=== PATIENT | male | born 1955 | race Caucasian/White ===

== ENCOUNTER 2019-05-11 11:07 | Emergency (ER) | payer BC, MEDICARE ==
[2019-05-11] MEDS ORDERED: Aspirin 81 mg CHEW TAB* 81 MG TAB.CHEW PO ONE (11:20)
[2019-05-11] MEDS ORDERED: Nitroglycerin TAB 0.4 MG* 0.4 MG TAB SL ONE (11:20)
--- NOTE | 2019-05-11 11:42 | ED ---
HPI Chest Pain - HPI Summary HPI Summary: 63 year old male presents to the ED with a chief complaint of dull lower chest pain starting this morning at 0430. Patient reports nausea. He denies vomiting, diarrhea, shortness of breath, abdominal pain, cough, diaphoresis, and dizziness. Patient has presented to the ED in the past with these symptoms with no findings. Patient smokes tobacco. PMHx of HLD. No HTN, DM. Family history of [place]. - History of Current Complaint Chief Complaint: EDAbdPain Time Seen by Provider: 05/11/19 11:21 Hx Obtained From: Patient Onset/Duration: Started Hours Ago Time of Onset: 04:30 Timing: Constant Initial Severity: Mild Current Severity: Mild Pain Intensity: 0 Chest Pain Location: Lower Sternal Chest Pain Radiates: Yes Chest Pain Radiates To:: Epigastric Character: Dull/Aching Associated Signs and Symptoms: Positive: Chest Pain, Nausea. Negative: Dizziness, Shortness of Breath, Diaphoresis, Cough, Vomiting - Allergy/Home Medications Allergies/Adverse Reactions: Allergies Allergy/AdvReac Type Severity Reaction Status Date / Time No Known Allergies Allergy Verified 07/29/17 09:31 Home Medications: Home Medications Aspirin EC TAB* [Ecotrin EC Low Dose 81 MG*] 81 mg PO DAILY 05/11/19 [History Confirmed 05/11/19] Rosuvastatin (NF) [Crestor (NF)] 5 mg PO DAILY 05/11/19 [History Confirmed 05/11] PMH/Surg Hx/FS Hx/Imm Hx Endocrine/Hematology History: Denies: Hx Diabetes Cardiovascular History: Reports: Hx Hypercholesterolemia, Other Cardiovascular Problems/Disorders - high cholesterol Denies: Hx Hypertension, Hx Pacemaker/ICD Respiratory History: Denies: Hx Asthma History: Denies: Hx Renal Disease Sensory History: Denies: Hx Hearing Aid Psychiatric History: Denies: Hx Panic Disorder - Surgical History Surgery Procedure, Year, and Place: BLADDER BIOPSY - BENIGN Infectious Disease History: No Infectious Disease History: Denies: Traveled Outside the [place] in Last 30 Days - Family History Known Family History: Negative: Cardiac Disease Family History: NON CONTRIBUTORY - Social History Alcohol Use: Daily Alcohol Amount: 2-3 beers/day Substance Use Type: Reports: None Smoking Status (MU): Heavy Every Day Tobacco Smoker Type: Cigarettes Amount Used/How Often: 1 PPD Length of Time of Smoking/Using Tobacco: 25+ Have You Smoked in the Last Year: Yes Review of Systems Negative: Skin Diaphoresis Positive: Chest Pain Negative: Shortness Of Breath, Cough Positive: Abdominal Pain, Nausea. Negative: Vomiting, Diarrhea All Other Systems Reviewed And Are Negative: Yes Physical Exam - Summary Physical Exam Summary: VITAL SIGNS: Reviewed. GENERAL: Patient is a well-developed and nourished male who is lying comfortable in the stretcher. Patient is not in any acute respiratory distress. HEAD AND FACE: No signs of trauma. No ecchymosis, hematomas or skull depressions. No sinus tenderness. EYES: PERRLA, EOMI x 2, No injected conjunctiva, no nystagmus. EARS: Hearing grossly intact. Ear canals and tympanic membranes are within normal limits. MOUTH: Oropharynx within normal limits. NECK: Supple, trachea is midline, no adenopathy, no JVD, no carotid bruit, no c- spine tenderness, neck with full ROM. CHEST: Symmetric, no tenderness at palpation. LUNGS: Clear to auscultation bilaterally. No wheezing or crackles. CVS: Regular rate and rhythm, S1 and S2 present, no murmurs or gallops appreciated. ABDOMEN: Soft, non-tender. No signs of distention. No rebound, no guarding, and no masses palpated. Bowel sounds are normal. EXTREMITIES: FROM in all major joints, no edema, no cyanosis or clubbing. NEURO: Alert and oriented x 3. No acute neurological deficits. Speech is normal and follows commands. SKIN: Dry and warm. Triage Information Reviewed: Yes Vital Signs On Initial Exam: Initial Vitals Temp Pulse Resp BP Pulse Ox 96.7 F 62 16 135/109 97 05/11/19 11:08 05/11/19 11:08 05/11/19 11:08 05/11/19 11:08 05/11/19 11:08 Vital Signs Reviewed: Yes Procedures - Sedation Patient Received Moderate/Deep Sedation with Procedure: No Diagnostics - Vital Signs Vital Signs Temp Pulse Resp BP Pulse Ox 05/11/19 11:08 96.7 F 62 16 135/109 97 - Laboratory Result Diagrams: 05/11/19 11:21 05/11/19 11:21 Lab Statement: Any lab studies that have been ordered have been reviewed, and results considered in the medical decision making process. - EKG 1111 Cardiac Rate: Bradycardia - 59 bpm EKG Rhythm: Sinus Bradycardia ST Segment: Normal EKG Comparison: No Significant Change Summary of EKG Findings: EKG at 11:11 shows sinus bradycardia at 59 bpm. No STEMI. T wave inversion in beat 3. Similar to 07/29/17. An ED physician has reviewed and interpreted this EKG. Chest Pain Course/Dx - Course Assessment/Plan: 63 year old male presents to the ED with a chief complaint of dull lower chest pain starting this morning at 0430. Patient reports nausea. He denies vomiting, diarrhea, shortness of breath, abdominal pain, cough, diaphoresis, and dizziness. Patient has presented to the ED in the past with these symptoms with no findings. Patient smokes tobacco. PMHx of HLD. No HTN, DM. Family history of [place]. Blood work without any significant abnormality except for glucose 134 and the total protein 6.3. First troponin negative. EKG shows a normal sinus rhythm without any ST elevation. CXR: no acute pathology. Second troponin is 0.00. Patient reports that all symptoms have resolved. Patient Hear score is: 3 therefore, low suspicion for CAD. Patient is not hypoxic or tachycardic. Wells criteria 0. Therefore, no suspicion for PE. Patient has no abdominal bruit thus no suspicion for AAA. Patients pain does not radiate to the back and pain has resolved thus low suspicion for aortic dissection. I discussed all the findings and test results with the patient. Patient was instructed to return to the emergency room immediately if any of the symptoms return or worsen. Patient understands and agrees. Plan of care was discussed with the patient and patient understands and agrees. All questions were answered at patient satisfaction. There were no further complaints or concerns. PE before discharge: CVS: S1 and S2 present. No murmurs appreciated. Abdominal exam before discharge: Soft, non-tender. No signs of distention. No rebound no guarding, and no masses palpated. Bowel sounds are normal. Patient is alert and oriented x 3. Patient is hemodynamically stable. - Chest Pain Differential Diagnosis/HQI/PQRI: Acute [place], ACS, Angina, CHF, Chest Wall, GI Disease, Lower Respiratory Infection - Diagnoses Provider Diagnoses: Chest pain Discharge ED - Sign-Out/Discharge Documenting (check all that apply): Patient Departure - discharge home - Discharge Plan Condition: Stable Disposition: HOME Patient Education Materials: Chest Pain (ED) Referrals: Rahul Vang MD [Primary Care Provider] - Additional Instructions: Follow up with your primary care provider in 2-3 days. Return to the Emergency Department if you experience new or worsened symptoms. - Billing Disposition and Condition Condition: STABLE Disposition: Home - Attestation Statements Document Initiated by Poibe: Yes Documenting Scribe: Adrien Varner Provider For Whom Sherine is Documenting (Include Credential): Dr. Rodrick Srinivasan Scribe Attestation: Adrien Deluna, scribed for Dr. Rodrick Srinivasan on 05/11/19 at 2117. Scribe Documentation Reviewed: Yes Provider Attestation: The documentation as recorded by the Adrien jeffery accurately reflects the service I personally performed and the decisions made by Dr. Rodrick acevedo Status of Scribe Document: Viewed
[2019-05-11 11:48] LABS: ABS Eosinophils 0.1 10^3/ul (0-0.6); ABS Lymphocytes 2.3 10^3/ul (1.0-4.8); ABS Monocytes 0.4 10^3/ul (0-0.8); ABS Neutrophils 4.1 10^3/ul (1.5-7.7); ALT 22 U/L (7-52); AST 16 U/L (13-39); Albumin/Globulin Ratio 1.7 (1-3); Alkaline Phosphatase 59 U/L (34-104); Anion Gap 5 mmol/L (2-11); BUN/Creatinine Ratio 16.7 (8-20); Blood Urea Nitrogen 18 mg/dL (6-24); C Reactive Protein < 1.00 mg/L (<8.01); CO2 Carbon Dioxide 27 mmol/L (22-32); Chloride 107 mmol/L (101-111); Creatine Kinase 70 U/L (10-223); EGFR Non-African American 68.6 (>60); Globulin 2.3 g/dL (2-4); Glucose 134 mg/dL (70-100); Hematocrit 45 % (42-52); Hemoglobin 15.3 g/dL (14.0-18.0); Lymphocyte % 33.2 %; Mean Corpuscular HGB Conc 34 g/dL (31-36); Mean Corpuscular Hemoglobin 29 pg (27-31); Mean Corpuscular Volume 86 fL (80-94); Mean Platelet Volume 7.7 fL (7.4-10.4); Nucleated Red Blood Cells % 0.1; Platelet Count 284 10^3/uL (150-450); Potassium 4.2 mmol/L (3.5-5.0); Red Blood Count 5.25 10^6 /uL (4.18-5.48); Red Cell Distribution Width 16 % (10-15); Sodium 139 mmol/L (135-145); Total Protein 6.3 g/dL (6.4-8.9); White Blood Count 6.9 10^3/uL (3.5-10.8)
[2019-05-11 11:51] LABS: CKMB ng/mL 1.6 ng/mL (0.6-6.3); INR 0.98 (0.82-1.09)
[2019-05-11 15:17] VITALS: BP 134/70
[2019-05-11 15:54] LABS: Urine Appearance Clear; Urine Bilirubin Negative (Negative); Urine Blood 1+ (Negative); Urine Color Yellow; Urine Glucose Negative (Negative); Urine Ketones Negative (Negative); Urine Nitrite Negative (Negative); Urine Protein Negative (Negative); Urine Specific Gravity 1.015 (1.010-1.030); Urine Urobilinogen Negative (Negative)
[2019-05-11 15:55] LABS: Urine Bacteria Absent (Absent); Urine Red Blood Cell Trace(0-2/hpf) (Absent); Urine White Blood Cell Trace(0-5/hpf) (Absent)
== END 2019-05-11 15:19 | disposition home or self-care (01) ==
LOC: ED 11:07
DX: R07.89 Other chest pain (principal); R11.0 Nausea; R00.1 Bradycardia, unspecified; E78.00 Pure hypercholesterolemia, unspecified; Z79.82 Long term (current) use of aspirin; Z82.49 Family history of ischemic heart disease and other diseases of the circulatory system; F17.210 Nicotine dependence, cigarettes, uncomplicated
CPT/HCPCS: 36415; 71046; 80053; 81003; 81015; 82550; 82553; 83690; 84484; 85025; 85610; 86140; 87086; 93005; 99283; A9270-GY